=== PATIENT | male | born 1970 | race Caucasian/White ===

== ENCOUNTER 2017-09-06 11:40 | Emergency (ER) | payer OTHER ==
[~2017-09-06] VITALS: Ht 170.1 cm; Wt 86.2 kg
[~2017-09-06 11:40] MED LIST: CLARITIN10 MG PO; CLONAZEPAM; DEPAKOTE; FLONASE ALLERG9.9 ML NAS; PREDNISONE10 MG PO; ROBITUSSIN DM 105 ML PO; TEGRETOL200 MG PO
[2017-09-06] MEDS ORDERED: ZITHROMAX250 MG PO (12:52)
== END 2017-09-06 12:57 | disposition home or self-care (01) ==
LOC: ED 11:40
DX: J20.9 Acute bronchitis, unspecified (principal); Z88.2 Allergy status to sulfonamides; Z79.899 Other long term (current) drug therapy